=== PATIENT | female | born 1965 ===

== ENCOUNTER 2017-05-05 08:20 | Day surgery (SDC) | payer SELFPAY ==
[2016-04-08 12:16] VITALS: BMI 31.2
[2017-05-05] MEDS ORDERED: Lactated Ringer's 1,000 ML IV ONE (08:43)
[2017-05-05] MEDS ORDERED: Midazolam 2 MG/2 ML VIAL ONE (09:07)
[2017-05-05] MEDS ORDERED: Propofol 10 mg/ml Inj (20 ML) ONE (09:07)
[2017-05-05 09:16] VITALS: TEMP 96.8
--- NOTE | 2017-05-05 09:24 | CP.SDSHP ---
Same Day Surgery H & P - History Proposed Procedure: r/o h. pylori, colon cancer screening Pre-Op Diagnosis: colon cancer screening, gastritis - Allergies Allergies: Allergies No Known Allergies Allergy (Verified 04/08/16 12:16) - Physical Exam General Appearance: no acute distress, Vital Signs: Vital Signs 05/05/17 09:15 Temperature 96.8 F L Pulse Rate 68 Respiratory 17 Rate Blood Pressure 132/81 O2 Sat by Pulse 99 Oximetry Mental Status: Alert & Oriented x3 Neuro: WNL Heart: WNL Lungs: WNL GI: WNL - Impression Impression: colon cancer screening, GERD, r/o H. Pylori - Date & Time Date: 05/05/16 Time: 09:24 Short Stay Discharge - Short Stay Discharge Admitting Diagnosis/Reason for Visit: Z12.11 Disposition: HOME/ ROUTINE
[2017-05-05 10:04] VITALS: O2SAT 100
[2017-05-05 10:28] VITALS: BP 122/74; PULSE 60; RESP 12
== END 2017-05-05 12:14 | disposition home or self-care (01) ==
LOC: H.ENDO 08:20
PROVIDERS: ATTEND Internal Medicine Gastroenterology
DX: Z12.11 Encounter for screening for malignant neoplasm of colon (principal); E78.5 Hyperlipidemia, unspecified; I10 Essential (primary) hypertension; E03.9 Hypothyroidism, unspecified; E66.9 Obesity, unspecified; K64.8 Other hemorrhoids; K25.9 Gastric ulcer, unspecified as acute or chronic, without hemorrhage or perforation; K21.9 Gastro-esophageal reflux disease without esophagitis; K29.50 Unspecified chronic gastritis without bleeding
CPT/HCPCS: 43239; 45378; 88305; J2250; J2704; J7120